=== PATIENT | female | born 1995 | race Hispanic/Latino ===

== ENCOUNTER 2022-11-23 18:01 | Emergency (ER) | payer OTHER, SELFPAY ==
[2022-11-23 18:14] VITALS: BP 109/59; PULSE 78; RESP 16; TEMP 37; O2SAT 100
--- NOTE | 2022-11-23 18:39 | ED.BACK ---
HPI - Back Pain/Injury General Chief Complaint: Back Pain/Injury Stated Complaint: lower back pain Time Seen by Provider: 11/23/22 18:33 Source: patient and RN notes reviewed Mode of arrival: ambulatory Limitations: no limitations and other (Patient declined textiles printer) History of Present Illness HPI Narrative: Patient presents today complaining of left lower back pain after she fell in the shower yesterday. Denies radiation of the pain. Denies numbness or tingling in the genitals, legs, or feet. Denies loss of bowel or bladder control. She currently rates her pain 9/10, which increases with movement. She has tried no [id number] interventions prior to arrival. Related Data Home Medications Medication Instructions Recorded Confirmed medroxyprogesterone 150 mg/mL 150 mg IM USEASDIRECTD 11/23/22 11/23/22 intramuscular syringe Allergies Allergy/AdvReac Type Severity Reaction Status Date / Time No Known Allergies Allergy Verified 11/23/22 18:32 Review of Systems Review of Systems: CONSTITUTIONAL: Denies body aches, fever, chills, or sweats. EYES: Denies visual changes, redness, or discharge. ENT: Denies rhinorrhea, congestion, sore throat, or otalgia. CARDIOVASCULAR: Denies chest pain, palpitations, or edema. RESPIRATORY: Denies cough or dyspnea. GASTROINTESTINAL: Denies abdominal pain, nausea, vomiting, or diarrhea. GENITOURINARY: Denies dysuria or hematuria. SKIN: Denies rash, itching, or wounds. MUSCULOSKELETAL: Denies joint pain, or myalgia.+ back pain NEUROLOGIC: Denies headache, numbness, tingling, or weakness. PSYCH: Denies depression or anxiety. PMFSH Comments At time of signature, I have reviewed and agree with nursing past medical, surgical, social and family history unless otherwise noted. Please see nursing chart for further information. There is no relevant family history pertinent to the presenting complaint Exam Narrative: GENERAL: Well-appearing, well-nourished, and in no acute distress. HEAD: Normocephalic, atraumatic. EYES: EOMI. No redness or drainage. Conjunctivae normal. ENT: Mucous membranes pink and moist. NECK: Normal AROM. CHEST: No respiratory distress. MUSCULOSKELETAL: No bony tenderness of the spine. Left lower lumbar paraspinal muscle tenderness. Distal sensation intact. Saddle sensation intact. Capillary refill normal. Dorsiflexion and plantar flexion equal and strong against resistance. EXTREMITIES: Normal range of motion. No edema. SKIN: Warm, dry, no rash. Capillary refill normal. Normal skin turgor. NEURO: No focal deficits. Alert and oriented x3. Gait steady. PSYCH: Normal affect. No signs of depression or anxiety. Course Course Level of Care: Express Care Visit Vital Signs Vital signs: Vital Signs Temperature 98.6 F 11/23/22 18:14 Pulse Rate 78 11/23/22 18:14 Respiratory Rate 16 11/23/22 18:14 Blood Pressure 109/59 L 11/23/22 18:14 Pulse Oximetry 100 11/23/22 18:14 Oxygen Delivery Room Air 11/23/22 18:14 Temperature 98.6 F 11/23/22 18:14 Pulse Rate 78 11/23/22 18:14 Respiratory Rate 16 11/23/22 18:14 Blood Pressure 109/59 L 11/23/22 18:14 Pulse Oximetry 100 11/23/22 18:14 Oxygen Delivery Room Air 11/23/22 18:14 Reviewed MDM - Back Pain/Injury MDM Narrative Medical decision making narrative: Will treat patient with an NSAID and muscle relaxer for her symptoms. Also discussed [id number] treatment. Anticipatory guidance given. Differential Diagnosis Differential diagnosis: Likely sciatica and strain of lumbar region Lab Data Attestation: I reviewed the patient's lab results. Labs: UCG Bedside Result Negative Reference Range: Negative Urine Glucose Negative Reference Range: Negative Urine Bilirubin Negative
== END 2022-11-23 18:50 | disposition home or self-care (01) ==
PROVIDERS: Emergency Provider Nurse Practitioner
DX: S39.012A Strain of muscle, fascia and tendon of lower back, initial encounter (principal); W18.2XXA Fall in (into) shower or empty bathtub, initial encounter
CPT/HCPCS: 81003; 81025; 99213; G0463

== ENCOUNTER 2024-05-17 13:07 | Emergency (ER) | payer SELFPAY ==
[2024-05-17 13:17] VITALS: BP 109/71; PULSE 75; RESP 16; TEMP 36; O2SAT 99
--- NOTE | 2024-05-17 13:29 | ED.ABDPAIN ---
HPI - Abdominal Pain General Chief Complaint: Abdominal Pain Stated Complaint: Abdominal Pain Time Seen by Provider: 05/17/24 13:10 Source: patient Mode of arrival: ambulatory Limitations: no limitations History of Present Illness HPI narrative: Patient is a 29-year-old female who presents with right upper quadrant pain that radiates to her back that started yesterday. Patient states she had chick marla a to eat which is not out of her normal. States she had a gallbladder attack last year, but unsure what they did for it. Also having diarrhea. Denies any nausea or vomiting. Reports pain has been constant at a 9/10. Denies any abdominal surgeries. Related Data Home Medications ?Medication ?Instructions ?Recorded ?Confirmed ?Last Taken ?Type No Home Medications 05/17/24 05/17/24 Unknown History Allergies Allergy/AdvReac Type Severity Reaction Status Date / Time No Known Allergies Allergy Verified 05/17/24 14:12 Review of Systems Review of Systems: All systems reviewed & are unremarkable except as noted in HPI and below Constitutional: Constitutional: Denies body ache(s), Denies chills, Denies fatigue, Denies fever(s), Denies headache(s), Denies malaise and Denies weakness Eyes: Eyes: Denies blurry vision, Denies irritation and Denies loss of vision ENT: Denies otalgia, Denies headache(s), Denies nasal discharge, Denies sinus pain and Denies sore throat Cardiovascular: Cardiovascular: Denies chest pain, Denies irregular heart rhythm and Denies dyspnea Respiratory: Respiratory: Denies dyspnea Gastrointestinal: Gastrointestinal: Reports abdominal pain, Denies melena, Denies hematochezia, Reports diarrhea, Denies nausea and Denies vomiting Musculoskeletal: Musculoskeletal: Denies back pain, Denies myalgias and Denies arthralgias Integumentary/Breasts: Skin/Breast: Denies pruritus and Denies rash Neurologic: Denies headache(s), Denies loss of vision and Denies weakness Psychiatric: Psychiatric: Reports no additional psychiatric complaints Endocrine: Endocrine: Denies fatigue PMFSH Comments At time of signature, agree with nursing past medical, surgical, social and family history. There is no relevant family history pertinent to the presenting complaint. Exam Const: General: cooperative, healthy appearing, comfortable, no acute distress and well nourished Nutritional Appearance: well nourished Orientation/consciousness: patient oriented x3 Limitations: no limitations HENMT: Head: normal to inspection, normocephalic and atraumatic Ears: hearing grossly normal bilaterally and external ears normal Face/Nose/Sinus: Normal external nose present, normal facial exam and face symmetric Face and sinus: normal facial exam and face symmetric Mouth: Yes lip normal Eyes: General: appearance normal, both eyes and all related structures Alignment and Position: alignment normal and position normal Periorbital: periorbital findings normal Eyelids: eyelids normal Pupils: Equal, round and reactive pupils present EOM: EOMs intact bilaterally Neck: Neck: normal visual inspection, full ROM and supple Chest: Chest palpation & inspection: normal inspection of the chest Resp: Effort & Inspection: normal respiratory effort and able to speak in complete sentences Auscultation: clear to auscultation bilaterally Cardio: Rate: regular rate Rhythm: regular rhythm Heart sounds: S1 normal heart sound present and S2 normal heart sound present GI: Inspection: normal to inspection GI Palp: Yes abdominal tenderness (RUQ), Yes Soft to palpation and No Guarding due to palpation present (GI) Auscultation: normal bowel sounds Rectal Exam: deferred Skin: General skin exam: normal color and no rashes or lesions noted Neuro: General: patient oriented x3 and moves all extremities Cranial nerves: Yes Equal, round and reactive pupils present Speech: normal speech Gait exam (Neuro): Normal gait present Extrem: General: normal to inspection, full ROM and no edema Psych: Appearance: grossly normal and well kempt Mental Status: mental status grossly normal Speech and movement: Normal speech and movement present Affect: normal affect Attitude: cooperative Thought process: Normal thought process present Course Course Emergency Course: Patient being transferred to [facility] for further workup an evaluation. Patient will need labs and imaging to rule out cholecystitis. Portions of this record may have been created with voice recognition software Level of Care: Express Care Visit Vital Signs Vital signs: Vital Signs Temperature 36.0 C L 05/17/24 13:17 Pulse Rate 75 05/17/24 13:17 Respiratory Rate 16 05/17/24 13:17 Blood Pressure 109/71 05/17/24 13:17 Pulse Oximetry 99 05/17/24 13:17 Oxygen Delivery Room Air 05/17/24 13:17 Temperature 36.0 C L 05/17/24 13:17 Pulse Rate 75 05/17/24 13:17 Respiratory Rate 16 05/17/24 13:17 Blood Pressure 109/71 05/17/24 13:17 Pulse Oximetry 99 05/17/24 13:17 Oxygen Delivery Room Air 05/17/24 13:17 Reviewed Transfer Transfered to: [facility] Transfer rationale: Patient being transferred to [facility] for further workup an evaluation. Patient will need labs and imaging to rule out cholecystitis. Accepting physician: Monie BARR MDM - Abdominal Pain MDM Narrative Medical decision making narrative: Patient being transferred to [facility] for further workup an evaluation. Patient will need labs and imaging to rule out cholecystitis. Differential Diagnosis Differential diagnosis: Likely abdominal pain, acute appendicitis, constipation, gastroenteritis, small bowel obstruction and other (Cholecystitis) Medical Records Attestation: I reviewed the patient's medical records. Discharge Plan Discharge Clinical Impression: Right upper quadrant abdominal pain Patient Disposition: Acute Care Hospital Condition: Stable Patient Language: Filipino Prescriptions: No Action medroxyprogesterone 150 mg/mL syringe 150 mg IM USEASDIRECTD Rx Instructions: Q 3 MONTHS AT CLINIC naproxen 500 mg tablet 500 mg PO BID PRN (Reason: pain) Qty: 20 0RF cyclobenzaprine 10 mg tablet 10 mg PO TID PRN (Reason: muscle spasm) Qty: 20 0RF Follow-up/Referrals: Angelica,ALAINA Mckeon [Primary Care Provider] - Time of Disposition: 14:19
== END 2024-05-17 14:20 | disposition short-term general hospital (02) ==
PROVIDERS: Emergency Provider Nurse Practitioner Family; PCP Physician Assistant
DX: R10.11 Right upper quadrant pain (principal)
CPT/HCPCS: 99212; G0463